=== PATIENT | male | born 1945 | race Caucasian/White ===

== ENCOUNTER → 2016-07-14 | Outpatient (CLI) | payer MEDICARE, OTHER ==
[~2016-07-14] MED LIST: ALBUTEROL17 GM INH; ALEVE220 M1 PO; ALLERGY RELIEF4 MG PO; ALLERGY10 M1 PO; ASPIRIN81 M2 PO; CELEBREX PO; CLOBETASOL 0.0560 GM TOP; FLEXERIL PO; FLEXERIL10 M1 PO; FLEXERIL10 MG PO; FLONASE 0.05% N16 G1; FLONASE16 GM; FORADIL12 MCG NEB; HYDROCODON-ACE1 EAC2 PO; IRON1 TAB PO; LIPITOR PO; LIPITOR40 MG PO; LISINOPRIL10 MG PO; LORTAB 7.51 TAB PO; MIRALAX17 GM PO; MOBIC15 MG PO; MONTELUKAST SOD10 MG PO; NEXIUM PO; OMEPRAZOLE40 M1 PO; PERCOCET 7.5-31 EACH PO; PLAVIX PO; PRINIVIL10 MG PO; PULMICORT200 MCG/AE INH; SINGULAIR PO; SPIRIVA18 MCG IN; SPIRIVA18 MCG INH; STOOL SOFTENER100 M1 PO; VITAMIN D35000 UNIT PO; ZYRTEC PO; [UNRECOGNIZED DRUG - OTHER] PO
--- NOTE | ~2016-07-14 | CT52 ---
[facility] A Service of [facility] RADIOLOGY TEXT RESULTS PATIENT: JOSHUA GUY LOCATION: [facility] : [birth year] UNIT #: [id number] AGE: [address]: Santos Bruce MD SEX: M ORDER DR: [id number] [facility] [address] [place], [place] [address] [id number] O MR#: [id number] Acc #: [id number] NAME: JOSHUA GUY : 1945 SEX: M STUDY DATE/TIME: 07/14/2016 15:11 UNIT: [facility] ROOM: STUDY DESCRIPTION: CT Cervical Spine Wo Cont Attending Physician: Santos Bruce M.D. Ordering Physician: Santos Bruce M.D. Primary Care Physician: Rosa Elena Lam M.D. MEDICAL IMAGING REPORT This report is preliminary unless electronic signature is present EXAM Cervical spine CT. HISTORY Previous neck surgery in 2013. Neck pain for the past 6-8 months. TECHNIQUE Thin section axial imaging was obtained from the skull base to the upper thoracic spine and evaluated at bone and soft tissue windows with multiplanar reformats and compared with plain film evaluation from 10/13/2014 FINDINGS Moderate degenerative change is seen at C1-C2 with osteophyte formation and joint space narrowing. There is an anterior bridging osteophyte across C2-3, and there is moderate bilateral facet hypertrophy on the right at C2-3 and ankylosis of the left facet. Postoperative changes of fusion are seen across C3-4 with a ventral bone plate and screws. No hardware complications are noted. At C4-5 the disc space height is preserved. There is a slight anterolisthesis of C4 on C5 with small osteophytes. At C5-6, the disc is narrowed with anterior and posterior osteophyte formation. At C6-7, the disc is mildly narrowed with anterior osteophyte formation. C7-T1 is unremarkable. Facet hypertrophy is also seen across the fused levels most probably on the left at C3-4 and to a lesser extent on the right at C4-5. Foraminal narrowing is mild on the left at C2-C3. At C3-C4, foraminal STS. [facility] A Service of [facility] RADIOLOGY TEXT RESULTS PATIENT: JOSHUA GUY LOCATION: [facility] : [birth year] UNIT #: [id number] AGE: [address]: Santos Bruce MD SEX: M ORDER DR: stenosis is moderately severe bilaterally and symmetric. At C4-5, foraminal stenosis is mild on the left and moderately severe on the right, predominately due to facet hypertrophy. At C5-6, foraminal stenosis is moderate bilaterally. The C6-7 foraminal narrowing is mild bilaterally. At C7-T1, the foramina are widely patent. Central spinal stenosis is moderately severe across the fused level of an AP diameter of the spinal canal measuring 11 mm. There is also moderately severe central stenosis at C5-6 with an AP diameter of the spinal canal of 9 mm. No fractures or destructive bone lesions are seen. Degenerative disc disease has not progressed significantly when compared to plain film study from 10/13/2014. No paraspinous soft tissue masses are seen. IMPRESSION 1. Intact fusion across C3-4. 2. Multilevel degenerative disc disease as described above level by level, most prominent at C2-3 and C5-6. 3. Multilevel foraminal stenosis, as described above. Foraminal stenosis is moderately severe bilaterally at the C3-4 across the fused level and severe on the right side at C4-5, predominately from facet disease. Central stenosis is moderate and most prominent at C3-4 and C5-6. No acute bony abnormalities are seen. Dictated by... Bill Morrell M.D. THIS IS AN ELECTRONICALLY VERIFIED REPORT Bill Morrell M.D. at 07/15/2016 3:49 PM JOHN/shania TD: 07/15/2016 14:38 JOB #: [id number] MEDICAL IMAGING REPORT Page 1 of 1 COPY
--- NOTE | ~2016-07-14 | CT98 ---
[facility] A Service of [facility] RADIOLOGY TEXT RESULTS PATIENT: JOSHUA GUY LOCATION: [facility] : [birth year] UNIT #: [id number] AGE: [address]: Santos Bruce MD SEX: M ORDER DR: [id number] [facility] [address] [place], [place] [address] [id number] O MR#: [id number] Acc #: [id number] NAME: JOSHUA GUY : 1945 SEX: M STUDY DATE/TIME: 07/14/2016 15:21 UNIT: [facility] ROOM: STUDY DESCRIPTION: CT Lumbar Spine Wo Cont Attending Physician: Santos Bruce M.D. Ordering Physician: Santos Bruce M.D. Primary Care Physician: Rosa Elena Lam M.D. MEDICAL IMAGING REPORT This report is preliminary unless electronic signature is present EXAM Lumbar spine CT HISTORY Lumbar back surgery in 1989. Low back pain chronically over the past [address] exam was performed with one or more of the following radiation dose reduction techniques: automatic exposure control, adjustment of mA and/or kV according to patient size, and iterative reconstruction. Axial imaging was obtained from the lower thoracic spine to the sacrum and evaluated at bone and soft tissue windows with multiplanar reformats. The study is correlated with the lumbar plain films from 11/17/2014. FINDINGS There are tiny rudimentary ribs at L1. Mild degenerative disc disease is seen across T12-L1 and L1-L2 with only mild canal narrowing and wide patency of the foramina. At L2-3, the canal and foramina are widely patent with only mild disc bulging noted. At L3-4, there is moderate posterior disc bulging with moderate central stenosis but the foramina are only mildly narrowed. At L4-5, postoperative changes are seen on the right. There is a prominent posterior disc osteophyte complex that extends more to the right of midline than to the left. Central stenosis is moderately severe. Foraminal narrowing is mild bilaterally. Facet hypertrophy is moderate on both sides. At L5-S1 there is a grade 1 spondylolisthesis with advanced bilateral STS. [facility] A Service of [facility] RADIOLOGY TEXT RESULTS PATIENT: JOSHUA GUY LOCATION: [facility] : [birth year] UNIT #: [id number] AGE: [address]: Santos Bruce MD SEX: M ORDER DR: facet hypertrophy but no pars defects. Foraminal stenosis is present bilaterally worse on the left than on the right. No fractures or destructive bone lesions are seen. No paraspinous masses are noted. IMPRESSION Multilevel degenerative disc and facet disease as described above level by level with postoperative change on the right at L4-5. Central stenosis is most prominent at L4-5 secondary to disc disease predominately. Foraminal stenosis is most prominent at L5-S1, left worse than right secondary to a combination of disc and facet disease. Dictated by... Bill Morrell M.D. THIS IS AN ELECTRONICALLY VERIFIED REPORT Bill Morrell M.D. at 07/15/2016 3:49 PM JOHN/eufemia TD: 07/15/2016 14:36 JOB #: [id number] MEDICAL IMAGING REPORT Page 1 of 1 COPY
== END | disposition home or self-care (01) ==
LOC: CCAT 14:50
DX: M50.20 Other cervical disc displacement, unspecified cervical region (principal); M54.2 Cervicalgia; M43.16 Spondylolisthesis, lumbar region; M51.36 Other intervertebral disc degeneration, lumbar region; M48.06 Spinal stenosis, lumbar region; M50.31 Other cervical disc degeneration, high cervical region; M50.322 Other cervical disc degeneration at C5-C6 level; M48.02 Spinal stenosis, cervical region; Z98.890 Other specified postprocedural states; Z98.1 Arthrodesis status
CPT/HCPCS: 72125; 72131